=== PATIENT | female | born 1995 | race Hispanic/Latino ===

== ENCOUNTER 2017-11-20 22:25 | Emergency (ER) | payer OTHER, SELFPAY ==
[2017-11-20 22:38] VITALS: BP 119/94; PULSE 102; RESP 15; TEMP 37.3; O2SAT 98
[2017-11-20 23:00] VITALS: BP 121/85; PULSE 106; RESP 15; O2SAT 99
--- NOTE | 2017-11-20 23:01 | PC.NURSE ---
pt reported one doctor Dx left lower back muscle spasm, a different doctor Dx bladder infection. pt currently taking abx. pt has friend at bedside and states I brought her cause she knows all this. pt friend is answering all questions asked to pt. pt looks at friend every time a question is asked and friend answers questions. pt state I cant pee so don't even ask me. pt is sitting calmly on stretcher and is slow to respond to any questions and moves very slowly when asked to for assessments. pt has prescribed medication at bedside.
--- NOTE | 2017-11-20 23:12 | ED.BACK ---
HPI - Back Pain/Injury General Chief Complaint: Back Pain/Injury Stated Complaint: TOOK MEDICINES TOGATHER DOUBLE VISION/BACK PAIN LE Time Seen by Provider: 11/20/17 22:35 Source: patient Mode of arrival: ambulatory Limitations: no limitations History of Present Illness HPI Narrative: 22F with history of hyperthyroid and back pain presents with chief complaint of rapid heart rate and somnolence since taking her medications this afternoon which include Ativan, atenolol, escitalopram, and possibly Vicodin. Patient has previously never taken all of these medications together. Her episode of tachycardia with short lived and certainly resolved prior to her arrival. She denies any chest pain, shortness of breath. She had some nausea and vomiting earlier today but that has since resolved. She is somnolent but easily arousable. She denies fever or chills. She has recently been seen for left flank pain which initially was treated for musculoskeletal problems but then she had a urine that suggested the potential of an infection, at which point she was placed on antibiotics. She has since seen her primary care provider who encouraged her to stop the antibiotics. Her back pain is worse with motion and improves with rest. She denies any numbness, tingling or weakness. She denies any trouble controlling MD Complaint: back pain Onset (ago): day(s) Duration: constant Similar Symptoms Previously: Yes Location: lumbar spine Severity: moderate Quality: burning, sharp and aching Radiation: none Relieving factors: sitting upright Exacerbating factors: movement and walking Review of Systems Review of Systems All systems reviewed & are unremarkable except as noted in HPI and below Constitutional Reports body ache(s), Denies chills, Reports daytime sleepiness, Reports fatigue, Denies fever(s), Denies lethargy and Denies weakness Eyes Denies change in vision, Denies eye discharge, Denies irritation and Denies loss of vision ENT Ears, Nose, Mouth, and Throat: Denies change in voice, Denies neck pain and Denies sore throat Cardiovascular Denies chest pain, Reports rapid heart rate, Denies irregular heart rhythm, Denies lightheadedness, Reports palpitations, Denies dyspnea, Denies dyspnea on exertion and Denies orthopnea Respiratory Denies cough, Denies dyspnea, Denies dyspnea on exertion and Denies wheezing Gastrointestinal Gastrointestinal: Denies abdominal pain, Denies change in bowel habits, Denies diarrhea, Denies nausea and Denies vomiting Genitourinary Denies hematuria, Denies flank pain, Denies urinary incontinence and Denies urinary urgency Musculoskeletal Reports back pain and Denies neck pain Integumentary/Breasts Denies pruritus, Denies erythema, Denies rash and Denies wounds Neurologic Denies confusion, Denies loss of vision and Denies weakness Psychiatric Denies anxiety, Denies confusion, Denies depression, Denies homicidal ideation and Denies suicidal ideation Endocrine Reports fatigue and Reports palpitations Hematologic/Lymphatic Denies easy bruising Allergic/Immunologic Denies wheezing [facility] Medical History Hyperthyroidism (Acute) Exam Narrative Exam Narrative: Patient is somnolent but arousable, in no obvious or significant pain Initial Vital Signs Initial Vital Signs: Vital Signs Temperature 99.1 F 11/20/17 22:38 Pulse Rate 102 H 11/20/17 22:38 Respiratory Rate 15 11/20/17 22:38 Blood Pressure 119/94 H 11/20/17 22:38 Pulse Oximetry 98 11/20/17 22:38 Const General: cooperative and well developed Nutritional Appearance: well nourished Orientation: alert, awake, oriented x3 and not confused [facility] Head: normocephalic and atraumatic Ears: external ears normal and TM's normal bilaterally Nose: external nose normal and No nasal discharge Face and sinus: sinuses nontender, face symmetric, no sinus tenderness and No dry mucous membranes Mouth: oral mucosae normal and moist mucous membranes Teeth and gingiva: dentition normal Throat: tonsils normal and uvula midline Eyes General: appearance normal, both eyes and all related structures Eyelids: eyelids normal Conjunctivae: conjunctivae normal Sclera: sclerae normal Pupils: PERRL EOM: EOM intact bilaterally Neck Neck: normal visual inspection, trachea midline, No lymphadenopathy, No midline deformity and No JVD Lymphatic: No lymphedema Cardio Rate: regular rate Rhythm: regular rhythm Heart Sounds: no click, no gallops, no murmurs and no rubs Pulses: normal peripheral pulses Back/Spine/Pelvis Other: 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 Patient exam notes decreased range of motion and muscle spasm, but no CVA tenderness, or vertebral point tenderness. There are no symptoms of cauda equina such as saddle anesthesia, and decreased reflexes, decreased sensation or strength. Course Orders Ordered: ED Orders 11/20/17 23:53 Basic Metabolic Panel Stat Complete Blood Count AUTO DIFF Stat T4 Thyroxine Stat Thyroid Stimulating Hormone Stat 11/21/17 01:36 Urinalysis and Microscopic Stat Urine Culture Stat Discontinued Medications Sodium Chloride (Normal Saline 0.9%) 1,000 mls @ 1,000 mls/hr IV BOLUS ONE Stop: 11/21/17 00:52 Last Infusion: 11/21/17 00:57 Dose: 0 mls/hr Admin: 11/21/17 00:11 Dose: 1,000 mls/hr Vital Signs - 8 hr 11/21/17 03:04 Pulse Rate 92 H Respiratory Rate 16 Blood Pressure 118/78 Pulse Oximetry 99 MDM - Back Pain/Injury Lab Data Result diagrams: 11/21/17 00:05 11/21/17 00:05 Lab Results 11/21/17 11/21/17 11/21/17 Range/Units 00:05 00:05 00:05 WBC 7.1 (4.5-11.0) X10^3/uL RBC 4.60 (4.0-5.2) X10^6/uL Hgb 13.0 (12.0-16.0) g/dL Hct 38.0 (36-46) % MCV 82.6 (80-100) fL MCH 28.2 (26-34) PG MCHC 34.2 (30-36) % RDW 14.5 (11.6-14.8) % Plt Count 229 (150-400) X10^3/uL Neut % (Auto) 39.2 L (50-75) % Lymph % (Auto) 46.1 H (25-40) % [place] % (Auto) 12.4 (3-14) % Eos % (Auto) 1.7 L (2-4) % Baso % (Auto) 0.6 (0-2) % Neut # (Auto) 2800 L (0037-5767) /uL Sodium 144 (137-145) mmol/L Potassium 4.4 (3.4-5.1) mmol/L Chloride 107 (98-107) mmol/L Carbon Dioxide 27 (22-32) mmol/L BUN 16 (7-17) mg/dL Creatinine 0.60 (0.52-1.04) mg/dL Estimated GFR > 60.0 (>60) mL/min BUN/Creatinine Ratio 26.7 H (6-22) Glucose 99 (70-100) mg/dL Calcium 9.2 (8.4-10.2) mg/dL TSH 0.06 L (0.47-4.68) uIU/mL Thyroxine (T4) 9.59 (5.5-11.0) ug/dL Urine Color Urine Appearance Urine pH (4.5-8.0) Ur Specific [place] (1.000-1.035) Urine Protein (Negative) Urine Glucose (UA) (Normal) g/dL Urine Ketones (NEGATIVE) Urine Occult Blood (Negative) Urine Nitrate (Negative) Urine Bilirubin (NEGATIVE) Urine Urobilinogen (0.2) E.U./dL Ur Leukocyte Esterase (NEGATIVE) Urine RBC (0-5/HPF) Urine WBC (0-5/HPF) Ur Squamous Epith Cells Urine Bacteria (None) Ur Culture Indicated? Micro UA Comment 11/21/17 Range/Units 01:36 WBC (4.5-11.0) X10^3/uL RBC (4.0-5.2) X10^6/uL Hgb (12.0-16.0) g/dL Hct (36-46) % MCV (80-100) fL MCH (26-34) PG MCHC (30-36) % RDW (11.6-14.8) % Plt Count (150-400) X10^3/uL Neut % (Auto) (50-75) % Lymph % (Auto) (25-40) % [place] % (Auto) (3-14) % Eos % (Auto) (2-4) % Baso % (Auto) (0-2) % Neut # (Auto) (5346-4398) /uL Sodium (137-145) mmol/L Potassium (3.4-5.1) mmol/L Chloride (98-107) mmol/L Carbon Dioxide (22-32) mmol/L BUN (7-17) mg/dL Creatinine (0.52-1.04) mg/dL Estimated GFR (>60) mL/min BUN/Creatinine Ratio (6-22) Glucose (70-100) mg/dL Calcium (8.4-10.2) mg/dL TSH (0.47-4.68) uIU/mL Thyroxine (T4) (5.5-11.0) ug/dL Urine Color Yellow Urine Appearance Slightly cloudy Urine pH 5.0 (4.5-8.0) Ur Specific [place] 1.025 (1.000-1.035) Urine Protein Negative (Negative) Urine Glucose (UA) Negative (Normal) g/dL Urine Ketones Negative (NEGATIVE) Urine Occult Blood Negative (Negative) Urine Nitrate Negative (Negative) Urine Bilirubin Negative (NEGATIVE) Urine Urobilinogen 0.2 (0.2) E.U./dL Ur Leukocyte Esterase 1+ H (NEGATIVE) Urine RBC None seen (0-5/HPF) Urine WBC 1-5/hpf (0-5/HPF) Ur Squamous Epith Cells 1-5 /hpf Urine Bacteria Few (2-10) H (None) Ur Culture Indicated? Specimen cultured Micro UA Comment Not Reportable Discharge Plan Departure Patient Disposition: Home Clinical Impression: Tachycardia, Polypharmacy Discharge Date/Time: 11/21/17 03:05 Interventions: ED Discharge Assessment Last Done: 11/21/17 03:04 Instructions: DI for Tachycardia Activity Restrictions/Additional Instructions: *You have been diagnosed with [ tachycardia resolved, polypharmacy and somnolence ] *What to do: *Take medications as directed, be careful when mixing all of your medications together, despite the fact they were all prescribed by physicians today's visit would suggest revisiting your dosing with your doctor *Follow up with your primary care provider in 2-3 days, call for an appointment. Let them know you were seen in the Emergency Department and that we ask that you be seen in follow up *Return to ER if you should have any new, worsening or concerning symptoms
[2017-11-21] MEDS: SODIUM CHLORIDE 0.9% 1,000 ML 1000 ML IV (00:11)
[2017-11-21 00:17] LABS: Add Manual Diff / Slide Review NO; Basophils Percent Auto 0.6 % (0-2); Eosinophils Percent Auto 1.7 % (2-4); Lymphocytes Percent Auto 46.1 % (25-40); Mean Corpuscular HGB Conc 34.2 % (30-36); Mean Corpuscular Hemoglobin 28.2 PG (26-34); Mean Corpuscular Volume 82.6 fL (80-100); Monocytes Percent Auto 12.4 % (3-14); Neutrophils Absolute Auto 2800 /uL (3000-5900); Neutrophils Percent Auto 39.2 % (50-75); Platelet Count 229 X10^3/uL (150-400); Red Cell Distribution Width 14.5 % (11.6-14.8); White Blood Cell Count 7.1 X10^3/uL (4.5-11.0)
[2017-11-21 00:28] LABS: BUN Creatinine Ratio 26.7 (6-22); Blood Urea Nitrogen 16 mg/dL (7-17); Calcium 9.2 mg/dL (8.4-10.2); Carbon Dioxide 27 mmol/L (22-32); Chloride 107 mmol/L (98-107); Estimated Glomerular Filt Rate > 60.0 mL/min (>60); Glucose 99 mg/dL (70-100); HEMOLYSIS 39 (0-50); Potassium 4.4 mmol/L (3.4-5.1); Sodium 144 mmol/L (137-145)
--- NOTE | 2017-11-21 00:32 | ED_ITS ---
HPI - Back Pain/Injury General Chief Complaint: Back Pain/Injury Stated Complaint: TOOK MEDICINES TOGATHER DOUBLE VISION/BACK PAIN LE Time Seen by Provider: 11/20/17 22:35 Source: patient Mode of arrival: ambulatory Limitations: no limitations History of Present Illness HPI Narrative: 22F with history of hyperthyroid and back pain presents with chief complaint of rapid heart rate and somnolence since taking her medications this afternoon which include Ativan, atenolol, escitalopram, and possibly Vicodin. Patient has previously never taken all of these medications together. Her episode of tachycardia with short lived and certainly resolved prior to her arrival. She denies any chest pain, shortness of breath. She had some nausea and vomiting earlier today but that has since resolved. She is somnolent but easily arousable. She denies fever or chills. She has recently been seen for left flank pain which initially was treated for musculoskeletal problems but then she had a urine that suggested the potential of an infection, at which point she was placed on antibiotics. She has since seen her primary care provider who encouraged her to stop the antibiotics. Her back pain is worse with motion and improves with rest. She denies any numbness, tingling or weakness. She denies any trouble controlling MD Complaint: back pain Onset (ago): day(s) Duration: constant Similar Symptoms Previously: Yes Location: lumbar spine Severity: moderate Quality: burning, sharp and aching Radiation: none Relieving factors: sitting upright Exacerbating factors: movement and walking Review of Systems Review of Systems All systems reviewed & are unremarkable except as noted in HPI and below Constitutional Reports body ache(s), Denies chills, Reports daytime sleepiness, Reports fatigue , Denies fever(s), Denies lethargy and Denies weakness Eyes Denies change in vision, Denies eye discharge, Denies irritation and Denies loss of vision ENT Ears, Nose, Mouth, and Throat: Denies change in voice, Denies neck pain and Denies sore throat Cardiovascular Denies chest pain, Reports rapid heart rate, Denies irregular heart rhythm, Denies lightheadedness, Reports palpitations, Denies dyspnea, Denies dyspnea on exertion and Denies orthopnea Respiratory Denies cough, Denies dyspnea, Denies dyspnea on exertion and Denies wheezing Gastrointestinal Gastrointestinal: Denies abdominal pain, Denies change in bowel habits, Denies diarrhea, Denies nausea and Denies vomiting Genitourinary Denies hematuria, Denies flank pain, Denies urinary incontinence and Denies urinary urgency Musculoskeletal Reports back pain and Denies neck pain Integumentary/Breasts Denies pruritus, Denies erythema, Denies rash and Denies wounds Neurologic Denies confusion, Denies loss of vision and Denies weakness Psychiatric Denies anxiety, Denies confusion, Denies depression, Denies homicidal ideation and Denies suicidal ideation Endocrine Reports fatigue and Reports palpitations Hematologic/Lymphatic Denies easy bruising Allergic/Immunologic Denies wheezing [facility] Medical History Hyperthyroidism (Acute) Exam Narrative Exam Narrative: Patient is somnolent but arousable, in no obvious or significant pain Initial Vital Signs Initial Vital Signs: Vital Signs Temperature 99.1 F 11/20/17 22:38 Pulse Rate 102 H 11/20/17 22:38 Respiratory Rate 15 11/20/17 22:38 Blood Pressure 119/94 H 11/20/17 22:38 Pulse Oximetry 98 11/20/17 22:38 Const General: cooperative and well developed Nutritional Appearance: well nourished Orientation: alert, awake, oriented x3 and not confused [facility] Head: normocephalic and atraumatic Ears: external ears normal and TM's normal bilaterally Nose: external nose normal and No nasal discharge Face and sinus: sinuses nontender, face symmetric, no sinus tenderness and No dry mucous membranes Mouth: oral mucosae normal and moist mucous membranes Teeth and gingiva: dentition normal Throat: tonsils normal and uvula midline Eyes General: appearance normal, both eyes and all related structures Eyelids: eyelids normal Conjunctivae: conjunctivae normal Sclera: sclerae normal Pupils: PERRL EOM: EOM intact bilaterally Neck Neck: normal visual inspection, trachea midline, No lymphadenopathy, No midline deformity and No JVD Lymphatic: No lymphedema Cardio Rate: regular rate Rhythm: regular rhythm Heart Sounds: no click, no gallops, no murmurs and no rubs Pulses: normal peripheral pulses Back/Spine/Pelvis Other: hydraulic press tender but free of any obvious external abnormalities. Patient exam notes decreased range of motion and muscle spasm, but no CVA tenderness, or vertebral point tenderness. There are no symptoms of cauda equina such as saddle anesthesia, and decreased reflexes, decreased sensation or strength. Course Orders Ordered: ED Orders 11/20/17 23:53 Basic Metabolic Panel Stat Complete Blood Count AUTO DIFF Stat T4 Thyroxine Stat Thyroid Stimulating Hormone Stat 11/21/17 01:36 Urinalysis and Microscopic Stat Urine Culture Stat Discontinued Medications Sodium Chloride (Normal Saline 0.9%) 1,000 mls @ 1,000 mls/hr IV BOLUS ONE Stop: 11/21/17 00:52 Last Infusion: 11/21/17 00:57 Dose: 0 mls/hr Admin: 11/21/17 00:11 Dose: 1,000 mls/hr Vital Signs - 8 hr 11/21/17 03:04 Pulse Rate 92 H Respiratory Rate 16 Blood Pressure 118/78 Pulse Oximetry 99 MDM - Back Pain/Injury Lab Data Result diagrams: 11/21/17 00:05 11/21/17 00:05 Lab Results 11/21/17 11/21/17 11/21/17 Range/Units 00:05 00:05 00:05 WBC 7.1 (4.5-11.0) X10^3/uL RBC 4.60 (4.0-5.2) X10^6/uL Hgb 13.0 (12.0-16.0) g/dL Hct 38.0 (36-46) % MCV 82.6 (80-100) fL MCH 28.2 (26-34) PG MCHC 34.2 (30-36) % RDW 14.5 (11.6-14.8) % Plt Count 229 (150-400) X10^3/uL Neut % (Auto) 39.2 L (50-75) % Lymph % (Auto) 46.1 H (25-40) % [place] % (Auto) 12.4 (3-14) % Eos % (Auto) 1.7 L (2-4) % Baso % (Auto) 0.6 (0-2) % Neut # (Auto) 2800 L (1025-8482) /uL Sodium 144 (137-145) mmol/L Potassium 4.4 (3.4-5.1) mmol/L Chloride 107 (98-107) mmol/L Carbon Dioxide 27 (22-32) mmol/L BUN 16 (7-17) mg/dL Creatinine 0.60 (0.52-1.04) mg/dL Estimated GFR > 60.0 (>60) mL/min BUN/Creatinine Ratio 26.7 H (6-22) Glucose 99 (70-100) mg/dL Calcium 9.2 (8.4-10.2) mg/dL TSH 0.06 L (0.47-4.68) uIU/mL Thyroxine (T4) 9.59 (5.5-11.0) ug/dL Urine Color Urine Appearance Urine pH (4.5-8.0) Ur Specific [place] (1.000-1.035) Urine Protein (Negative) Urine Glucose (UA) (Normal) g/dL Urine Ketones (NEGATIVE) Urine Occult Blood (Negative) Urine Nitrate (Negative) Urine Bilirubin (NEGATIVE) Urine Urobilinogen (0.2) E.U./dL Ur Leukocyte Esterase (NEGATIVE) Urine RBC (0-5/HPF) Urine WBC (0-5/HPF) Ur Squamous Epith Cells Urine Bacteria (None) Ur Culture Indicated? Micro UA Comment 11/21/17 Range/Units 01:36 WBC (4.5-11.0) X10^3/uL RBC (4.0-5.2) X10^6/uL Hgb (12.0-16.0) g/dL Hct (36-46) % MCV (80-100) fL MCH (26-34) PG MCHC (30-36) % RDW (11.6-14.8) % Plt Count (150-400) X10^3/uL Neut % (Auto) (50-75) % Lymph % (Auto) (25-40) % [place] % (Auto) (3-14) % Eos % (Auto) (2-4) % Baso % (Auto) (0-2) % Neut # (Auto) (5941-6959) /uL Sodium (137-145) mmol/L Potassium (3.4-5.1) mmol/L Chloride (98-107) mmol/L Carbon Dioxide (22-32) mmol/L BUN (7-17) mg/dL Creatinine (0.52-1.04) mg/dL Estimated GFR (>60) mL/min BUN/Creatinine Ratio (6-22) Glucose (70-100) mg/dL Calcium (8.4-10.2) mg/dL TSH (0.47-4.68) uIU/mL Thyroxine (T4) (5.5-11.0) ug/dL Urine Color Yellow Urine Appearance Slightly cloudy Urine pH 5.0 (4.5-8.0) Ur Specific [place] 1.025 (1.000-1.035) Urine Protein Negative (Negative) Urine Glucose (UA) Negative (Normal) g/dL Urine Ketones Negative (NEGATIVE) Urine Occult Blood Negative (Negative) Urine Nitrate Negative (Negative) Urine Bilirubin Negative (NEGATIVE) Urine Urobilinogen 0.2 (0.2) E.U./dL Ur Leukocyte Esterase 1+ H (NEGATIVE) Urine RBC None seen (0-5/HPF) Urine WBC 1-5/hpf (0-5/HPF) Ur Squamous Epith Cells 1-5 /hpf Urine Bacteria Few (2-10) H (None) Ur Culture Indicated? Specimen cultured Micro UA Comment Not Reportable Discharge Plan Departure Patient Disposition: Home Clinical Impression: Tachycardia, Polypharmacy Discharge Date/Time: 11/21/17 03:05 Interventions: ED Discharge Assessment Last Done: 11/21/17 03:04 Instructions: DI for Tachycardia Activity Restrictions/Additional Instructions: *You have been diagnosed with [ tachycardia resolved, polypharmacy and somnolence ] *What to do: *Take medications as directed, be careful when mixing all of your medications together, despite the fact they were all prescribed by physicians today's visit would suggest revisiting your dosing with your doctor *Follow up with your primary care provider in 2-3 days, call for an appointment. Let them know you were seen in the Emergency Department and that we ask that you be seen in follow up *Return to ER if you should have any new, worsening or concerning symptoms
[2017-11-21 01:19] LABS: Thyroid Stimulating Hormone 0.06 uIU/mL (0.47-4.68)
[2017-11-21 01:33] LABS: T4 Total Thyroxine 9.59 ug/dL (5.5-11.0)
[2017-11-21 02:10] LABS: RBC Urine None Seen (0-5/HPF)
[2017-11-21 02:14] LABS: Bilirubin Urine UA NEGATIVE (NEGATIVE); Color Urine UA YELLOW; Glucose Urine UA NEGATIVE (Normal); Ketones Urine UA NEGATIVE (NEGATIVE); Leukocyte Esterase Urine UA 1+ (NEGATIVE); Nitrite Urine UA Negative (Negative); Occult Blood Urine UA NEGATIVE (Negative); Protein Urine UA NEGATIVE (Negative); Specific Gravity Urine UA 1.025 (1.000-1.035); Urobilinogen Urine UA 0.2 E.U./dL (0.2)
[2017-11-21 02:17] LABS: Appearance Urine UA Slightly Cloudy
[2017-11-21 02:46] LABS: Bacteria Urine Few (2-10); Culture Indicated Urine Specimen Cultured; Squamous Epithelial Cell Urine 1-5 /HPF; WBC Urine 1-5/HPF (0-5/HPF)
[2017-11-21 03:04] VITALS: BP 118/78; PULSE 92; RESP 16; O2SAT 99
== END 2017-11-21 03:05 | disposition home or self-care (01) ==
PROVIDERS: Emergency Provider Emergency Medicine
DX: R00.0 Tachycardia, unspecified (principal); Z79.899 Other long term (current) drug therapy
CPT/HCPCS: 36591; 80048; 81001; 81003; 84436; 84443; 85025; 87086; 93005; 93010; 96360; 99283; 99284